=== PATIENT | male | born 1935 | race American Indian/Alaskan Native ===

== ENCOUNTER 2017-05-11 14:51 | Outpatient (CLI) | payer MEDICARE ==
--- NOTE | 2017-05-11 15:49 | XRay Report ---
XRAY BILATERAL HIPS AND AP PELVIS THREE VIEWS: 05/11/17 CLINICAL: Bilateral hip pain FINDINGS: Right: No fracture or dislocation. Superior acetabular eburnation and mild central joint space narrowing. Normal soft tissues. Left: No fracture or dislocation. Superior acetabular eburnation and minimal joint space narrowing.Normal soft tissues. The pelvic bones are intact except for small bilateral iliac enthesophytes.Normal SI joints. Degenerative changes in the lower lumbar spine with fusion hardware at L5-S1. 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 IMPRESSION: Mild arthritis of the hips, right worse than left.Mild bilateral iliac enthesopathy.
--- NOTE | 2017-05-11 16:36 | XRay Report ---
XRAY LUMBAR SPINE WITH OBLIQUES 5 VIEWS: 05/11/17 14:51:00 CLINICAL: Back pain. FINDINGS: Marked levoscoliosis. Grade I L4-5 spondylolisthesis with no pars defect. Status post posterior fusion at L5-S1. L5-S1 disc space narrowing with an anterior osteophyte. The rest of the disc spaces are normal. Exaggerated lumbar lordosis. Lower lumbar facet joint sclerosis. Anterior osteophytes at L2-3 and L3-4. The pedicles are intact. No fracture. Multilevel osteophytes and neural foraminal stenosis. IMPRESSION: Scoliosis and multilevel facet joint arthropathy. Grade I L4-5 spondylolisthesis with no pars defect. Status post posterior fusion at L5-S1.
== END 2017-05-11 14:52 | disposition home or self-care (01) ==
LOC: SPVIMAG 14:51
PROVIDERS: ATTEND Internal Medicine
DX: M16.0 Bilateral primary osteoarthritis of hip (principal); M47.896 Other spondylosis, lumbar region; M41.87 Other forms of scoliosis, lumbosacral region; M43.16 Spondylolisthesis, lumbar region; M25.78 Osteophyte, vertebrae
CPT/HCPCS: 72110; 73521